=== PATIENT | female | born 1985 | race Caucasian/White ===

== ENCOUNTER → 2016-06-05 | Outpatient (CLI) | payer BC, OTHER ==
--- NOTE | 2016-06-06 07:14 | US ---
EXAMINATION TYPE: US OB anatomy transabd DATE OF EXAM: 06/05/2016 4:54 PM COMPARISON: in PACS HISTORY: large for dates, TECHNIQUE: Transabdominal (TA) EXAM MEASUREMENTS: GESTATIONAL AGE / DATING Physician Established: (20weeks/ 0 days) EDC: 10/23/2016 Dates by LMP: (20 weeks/ 0 days) EDC: 10/23/2016 Dates by First Scan: (19 weeks/ 0 days) EDC: 10/30/2016 Dates by Current Scan: (19 weeks/ 2 days) EDC: 10/28/2016 SURVEY IUP: Single PLACENTA: Anterior PREVIA: Low Lying EMILIANO: 17.1 cm Normal CERVICAL LENGTH (transabdominal: norm > 3.0cm): 5.7 cm BIOMETRY PRESENTATION: Vertex LIE: Oblique BPD: 4.4 cm 19 weeks / 2 days HC: 16.4 cm 19 weeks / 1 days AC: 14.1 cm 19 weeks / 3 days FL: 3.0 cm 19 weeks / 1 days ESTIMATED WEIGHT IN GRAMS: 283 grams ESTIMATED WEIGHT IN LBS/OZS: 0 lbs. 10 oz. WEIGHT PERCENTAGE BASED ON ESTABLISHED DATE: 13 % HC/AC: 1.8 FL/AC: 21 HEART RATE: 142 bpm RHYTHM: Normal ANATOMY SEEN (within normal limits): * Lateral Vent (< 1 cm) : 0.7 cm * Cisterna Magna (< 1.1 cm):0.2 cm * Nuchal Fold (< 0.6 cm): 0.1 cm * Cerebellum (varies with age): 1.96cm Choroid Plexus (bilateral) Midline Falx Cavus Septi Pellucidi Stomach Situs Diaphragm Kidneys (bilateral) Bladder Cord Insert Three Vessel Cord Longitudinal Spine Transverse Spine Arms (bilateral) Legs (bilateral) ANATOMY SEEN (does not appear within normal limits): ANATOMY NOT SEEN: Four Chamber Heart Outflow tracts: LVOT/RVOT Nose / Lips MATERNAL WALL MEASUREMENT: 6 cm from skin to anterior uterine wall (if exam limited due to body habi tus). IMPRESSION: large body habitus limited visualization, pt coming back 06/19 2016 for OB recheck, viab le IUP age appropiate
== END | disposition home or self-care (01) ==
LOC: EDBD → RADUSWWP 16:13
PROVIDERS: ATTEND Obstetrics & Gynecology
DX: O36.62X0 Maternal care for excessive fetal growth, second trimester, not applicable or unspecified (principal); Z3A.19 19 weeks gestation of pregnancy
CPT/HCPCS: 76811

== ENCOUNTER → 2016-07-07 | Outpatient (CLI) | payer BC, OTHER ==
[2016-07-07 16:42] LABS: CH 29.4; CHCM 33.7; HCT 36.2 % (34.0-46.0); HDW 2.82; HGB 12.3 gm/dL (11.4-16.0); MCH 29.8 pg (25.0-35.0); MCHC 33.9 g/dL (31.0-37.0); MCV 87.8 fL (80.0-100.0); Mean Platelet Volume 7.4; RBC 4.12 m/uL (3.80-5.40); RDW 13.2 % (11.5-15.5); WBC 11.5 k/uL (3.8-10.6)
[2016-07-07 16:43] LABS: ALT 21 U/L (9-52); AST 15 U/L (14-36); Blood Urea Nitrogen 9 mg/dL (7-17); Non-African American GFR(MDRD) >60 (>60 ml/min/1.73 sqM); Uric Acid 4.2 mg/dL (3.7-7.4)
[2016-07-07 20:36] LABS: Hemoglobin A1C 4.6 % (4.2-6.1)
== END | disposition home or self-care (01) ==
LOC: EDBD → LABWHC1 16:16
PROVIDERS: ATTEND Pediatrics Neonatal-Perinatal Medicine
DX: Z34.90 Encounter for supervision of normal pregnancy, unspecified, unspecified trimester (principal); Z3A.00 Weeks of gestation of pregnancy not specified
CPT/HCPCS: 36415; 82565; 83036; 84450; 84460; 84520; 84550; 85027

== ENCOUNTER → 2016-07-10 | Outpatient (CLI) | payer BC, OTHER | END | disposition home or self-care (01) | LOC: EDBD → LABWHC1 07:24 | PROVIDERS: ATTEND Pediatrics Neonatal-Perinatal Medicine | DX: Z34.02 Encounter for supervision of normal first pregnancy, second trimester (principal); Z3A.00 Weeks of gestation of pregnancy not specified | CPT/HCPCS: 36415; 81050; 82575; 82950; 84156 ==

== ENCOUNTER → 2016-07-17 | Outpatient (CLI) | payer BC, OTHER ==
[2016-07-17 11:43] LABS: Glucose 3 Hour, Gest 94 mg/dL
== END | disposition home or self-care (01) ==
LOC: EDBD → LABWHC1 07:26
PROVIDERS: ATTEND Obstetrics & Gynecology
DX: O99.810 Abnormal glucose complicating pregnancy (principal); Z3A.00 Weeks of gestation of pregnancy not specified
CPT/HCPCS: 36415; 82951; 82952

== ENCOUNTER 2016-10-12 13:14 | Outpatient (CLI) | payer BC, OTHER | END 2016-10-12 13:55 | disposition home or self-care (01) | LOC: FBPOP 13:14 → EDBD 13:14 → FBPOP 13:55 | PROVIDERS: ATTEND Obstetrics & Gynecology | DX: O26.93 Pregnancy related conditions, unspecified, third trimester (principal); Z3A.38 38 weeks gestation of pregnancy | CPT/HCPCS: 59025; 99213 ==

== ENCOUNTER 2016-10-18 14:54 | Outpatient (CLI) | payer BC, OTHER ==
[2016-10-18 15:48] VITALS: BP 136/86; PULSE 112; RESP 19; TEMP 96.4
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
== END 2016-10-18 17:58 | disposition home or self-care (01) ==
LOC: FBPOP 14:54
PROVIDERS: ATTEND Obstetrics & Gynecology
DX: O9A.213 Injury, poisoning and certain other consequences of external causes complicating pregnancy, third trimester (principal); T14.90 Injury, unspecified; Z3A.39 39 weeks gestation of pregnancy
CPT/HCPCS: 59025; 99213

== ENCOUNTER 2016-10-23 11:01 | Inpatient (IN) | payer BC, OTHER ==
[2016-10-27] MEDS ORDERED: OXYTOCIN 10 UNIT/ML 1 ML VIAL IM PRN (06:25)
[2016-10-27] MEDS ORDERED: TERBUTALINE 1 MG/ML VIAL SQ PRN (06:25)
[2016-10-27] MEDS ORDERED: CARBOPROST TROMETHAMINE 250 MCG/ML 1 ML AMP IM PRN (06:25)
[2016-10-27] MEDS ORDERED: METHYLERGONOVINE 0.2 MG/ML 1 ML AMP IM PRN (06:25)
[2016-10-27] MEDS ORDERED: LIDOCAINE 1% (PF) 10 MG/ML (30 ML SDV) SQ PRN (06:25)
[2016-10-27] MEDS ORDERED: OXYTOCIN 20 UNITS/1000 ML NS 1,000 ML IV SCH ×2 (06:30→19:15)
[2016-10-27] MEDS: LACTATED RINGERS 1,000 ML IV SCH ×3 (06:40→20:45)
[2016-10-27 06:59] LABS: Basophils % (A) 0 %; CH 28.5; CHCM 33.8; Eosinophils # (A) 0.3 k/uL (0-0.7); Eosinophils % (A) 3 %; HCT 36.9 % (34.0-46.0); HDW 2.68; HGB 12.2 gm/dL (11.4-16.0); Luc # (Auto) 0.17; Luc % (Auto) 2; Lymphocytes # (A) 1.8 k/uL (1.0-4.8); Lymphocytes % (A) 18 %; MCH 28.1 pg (25.0-35.0); MCHC 33.1 g/dL (31.0-37.0); MCV 84.7 fL (80.0-100.0); Mean Platelet Volume 7.5; Monocytes # (A) 0.4 k/uL (0-1.0); Monocytes % (A) 4 %; Neutrophils # (A) 7.6 k/uL (1.3-7.7); Neutrophils % (A) 74 %; RBC 4.35 m/uL (3.80-5.40); RDW 14.4 % (11.5-15.5); WBC 10.4 k/uL (3.8-10.6)
[2016-10-27 07:21] VITALS: BMI 36.8
--- NOTE | 2016-10-27 10:24 | P.HPOB ---
History of Present Illness H&P Date: 10/27/16 Chief Complaint: Induction of labor 31 year old presents at 40 weeks 4 days for induction of labor. Her cervix is 2/70/-2 and she is dominick irregularly. heart tones are 140-145 with moderate variability and reactive. Past Medical History Past Medical History: Asthma, Hypertension (white coat syndrome) Additional Past Medical History / Comment(s): OB history: This is her first and she has had care with me since the first trimester. A+, abs neg, Rub Imm, RPR NR, Hep B neg, HIV NR. GBS neg. History of Any Multi-Drug Resistant Organisms: None Reported Past Surgical History: No Surgical Hx Reported Past Anesthesia/Blood Transfusion Reactions: No Reported Reaction Past Psychological History: No Psychological Hx Reported Smoking Status: Never smoker Past Alcohol Use History: None Reported Past Drug Use History: None Reported - Past Family History Mother Family Medical History: Hypertension Additional Family Medical History / Comment(s): from pancreatic cancer Medications and Allergies Home Medications Medication Instructions Recorded Confirmed Type Albuterol Inhaler [Ventolin Hfa 1 inhaler IN DAILY 10/18/16 10/27/16 History Inhaler] Budesonide-Formot 160-4.5 Mcg 1 inhaler IN BID 10/18/16 10/27/16 History [Symbicort 160-4.5 Mcg Inhaler] Montelukast [Singulair] 1 tab PO DAILY 10/18/16 10/27/16 History Pnv,Calcium 72/Iron/Folic Acid 1 tab PO DAILY 10/18/16 10/27/16 History [ Plus Tablet] Allergies Allergy/AdvReac Type Severity Reaction Status Date / Time No Known Allergies Allergy Verified 10/18/16 15:05 Exam Osteopathic Statement: *. No significant issues noted on an osteopathic structural exam other than those noted in the History and Physical/Consult. - Vital Signs Vital signs: Vital Signs Temp Pulse Resp BP 10/27/16 07:13 95.7 F L 88 17 128/80 Intake and Output 10/26/16 10/27/16 10/27/16 22:59 06:59 14:59 Other: Weight 100.244 kg 100.244 kg Patient Weight 10/28/16 06:59 Weight 100.244 kg Heart: RRR Lungs: CTAB Abdomen: soft, nontender Extremeties: neg mariposa's Results Result Diagrams: 10/27/16 06:41 Assessment and Plan (1) Normal labor Status: Acute Plan: 1. induction of labor with amniotomy and pitocin
[2016-10-27] MEDS ORDERED: BUTORPHANOL 1 MG/ML 1 ML VIAL IV PRN (11:43)
[2016-10-27] MEDS ORDERED: SODIUM CHLORIDE 0.9% 100 ML BAG ONE ×2 (15:20→18:13)
[2016-10-27] MEDS ORDERED: BUPIVACAINE (PF) 0.25% 30 ML VIAL ONE ×2 (15:20→18:13)
[2016-10-27] MEDS ORDERED: fentaNYL (PF) 50 MCG/ML 5 ML AMP ONE ×2 (15:20→18:13)
[2016-10-27] MEDS ORDERED: BUPIVACAINE (PF) 0.25% 25 ML, fentaNYL (PF) 200 MCG in SODIUM CHLORIDE 0.9% 71 ML EPIDURAL ONE (17:19)
[2016-10-27] MEDS ORDERED: ceFAZolin 2 GM in SODIUM CHLORIDE 0.9% 100 ML IVPB ONE (17:28)
[2016-10-27] MEDS ORDERED: CITRIC ACID-SODIUM CITRATE 15 ML CUP PO ONE (17:28)
[2016-10-27] MEDS ORDERED: ONDANSETRON 4 MG/2 ML VIAL ONE (18:13)
[2016-10-27] MEDS ORDERED: OXYTOCIN 10 UNIT/ML 1 ML VIAL ONE (18:13)
[2016-10-27] MEDS ORDERED: ONDANSETRON 4 MG/2 ML VIAL IVP PRN (19:02)
[2016-10-27] MEDS ORDERED: LANOLIN CREAM 5 GM TUBE TOPICAL PRN (19:02)
[2016-10-27] MEDS ORDERED: ZOLPIDEM 5 MG TAB PO PRN (19:02)
[2016-10-27] MEDS ORDERED: diphenhydrAMINE 50 MG/ML 1 ML VIAL IVP PRN ×2 (19:02)
[2016-10-27] MEDS ORDERED: diphenhydrAMINE 50 MG CAP PO PRN (19:02)
[2016-10-27] MEDS ORDERED: HYDROmorphone PCA 5 MG/25 ML SYRINGE IV PRN (19:02)
[2016-10-27] MEDS ORDERED: METOCLOPRAMIDE 5 MG/ML 2 ML VIAL IVP PRN (19:02)
[2016-10-27] MEDS ORDERED: ACETAMINOPHEN TAB 325 MG TAB PO PRN (19:02)
[2016-10-27] MEDS ORDERED: NALOXONE 0.4 MG/ML 1 ML VIAL IV PRN (19:02)
[2016-10-27] MEDS ORDERED: SIMETHICONE 80 MG CHEWABLE PO PRN (19:02)
[2016-10-27] MEDS ORDERED: diphenhydrAMINE 25 MG CAP PO PRN (19:02)
--- NOTE | 2016-10-27 19:07 | P.OP ---
Date of Procedure: 10/27/16 Preoperative Diagnosis: 1. at 40 weeks and 4 days 2. Failure to progress Postoperative Diagnosis: 1. at 40 weeks and 4 days 2. Failure to progress Procedure(s) Performed: Primary low transverse Implants: Anesthesia: epidural Surgeon: Melba Charles Transportation Dispatcher #1: Judith Gómez Estimated Blood Loss (ml): 700 IV fluids (ml): 900 Urine output (ml): 400 Pathology: other (Placenta) Condition: stable Disposition: floor Indications for Procedure: 31-year-old presented at 40 weeks and 4 days for induction of labor. Her cervix was 2 cm dilated, 70% effaced, and -2 station. Amniotomy was performed and Pitocin was started. After several hours of adequate contractions her cervix did not change past 3 cm dilated. section was called and informed consent was obtained. Operative Findings: Viable male, Apgars 9, 9, weight 7 lbs. 13 oz. Description of Procedure: Patient was taken to the operating room where spinal anesthesia was found be adequate. She was prepped and draped in normal sterile fashion in dorsal supine position with a leftward tilt. Pfannenstiel skin incision was made the scalpel and carried through to the underlying layer of fascia with the scalpel. Fascia was incised in midline and carried bilaterally with the Unger scissors. The superior aspect of the fascial incision was grasped with Peewee clamps elevated and the underlying rectus muscles dissected off with the Unger's. Attention was then turned to inferior aspect of same incision which in a similar fashion was grasped tented up and the underlying rectus muscles dissected off with the Unger's. The rectus muscles were the midline and the peritoneum was identified tented up and entered sharply with the scalpel. The incision was extended superiorly and inferiorly with good visualization of the bladder. The bladder blade was inserted and the vesicouterine peritoneum was incised the Metzenbaums then carried bilaterally and bladder flap created digitally. A low transverse incision was then made on the uterus with the scalpel. This was carried bilaterally and digital manner. Infant's head delivered atraumatically, nose and mouth bulb suctioned, cord clamped and cut, infant handed off to waiting nurses. Apgars 9,9, weight 7 lbs. 13 oz. Placenta delivered manually, intact with three-vessel cord. The uterus is exteriorized and cleared of all clots and debris. The uterine incision was closed with 0 Vicryl in a running locked fashion. Second layer of the same sutures used in imbricating fashion to obtain excellent hemostasis. Bladder flap was then reapproximated using 2-0 Vicryl in a running fashion. Both ovaries and tubes appeared normal. The uterus was placed back into the abdomen. The peritoneum was reapproximated using 2-0 Vicryl in a running fashion. The muscles were reapproximated using 2-0 Vicryl in interrupted fashion. The fascia was reapproximated using 0 Vicryl in a running fashion. The subcutaneous tissues closed with 3-0 Vicryl running fashion. The skin was closed amelie. Patient tolerated the procedure well, sponge and instrument counts were correct times 2 and she was taken to the recovery room in stable condition.
[2016-10-27] MEDS: KETOROLAC 30 MG/ML 1 ML VIAL IVP PRN (20:03)
[2016-10-27] MEDS: SENNOSIDES-DOCUSATE SODIUM 1 EACH TAB PO SCH (20:45)
[2016-10-28] MEDS: LACTATED RINGERS 1,000 ML IV SCH ×2 (02:09→13:39)
[2016-10-28] MEDS: KETOROLAC 30 MG/ML 1 ML VIAL IVP PRN ×3 (02:16→15:50)
[2016-10-28 04:59] LABS: Basophils % (A) 0 %; CH 28.6; CHCM 33.1; Eosinophils # (A) 0.2 k/uL (0-0.7); Eosinophils % (A) 2 %; HCT 33.2 % (34.0-46.0); HGB 10.8 gm/dL (11.4-16.0); Luc # (Auto) 0.13; Luc % (Auto) 1; Lymphocytes # (A) 1.8 k/uL (1.0-4.8); Lymphocytes % (A) 15 %; MCH 28.3 pg (25.0-35.0); MCHC 32.7 g/dL (31.0-37.0); MCV 86.7 fL (80.0-100.0); Mean Platelet Volume 8.4; Monocytes # (A) 0.4 k/uL (0-1.0); Monocytes % (A) 3 %; Neutrophils # (A) 9.6 k/uL (1.3-7.7); Neutrophils % (A) 79 %; RBC 3.83 m/uL (3.80-5.40); RDW 14.7 % (11.5-15.5); WBC 12.1 k/uL (3.8-10.6); WBC (Perox) 12.13
[2016-10-28] MEDS: SENNOSIDES-DOCUSATE SODIUM 1 EACH TAB PO SCH ×2 (08:06→20:05)
[2016-10-28] MEDS ORDERED: Acetaminophen-Codeine 300-30mg TAB PO PRN (08:26)
--- NOTE | 2016-10-28 08:26 | P.PNOBGPC ---
Subjective - Subjective Principal diagnosis: Status post primary low transverse postop day #1 Interval history: Patient seen and examined. Denies nausea, vomiting, chest pain, shortness of breath or calf pain. Patient reports: Reports appetite normal, Reports voiding normally, Reports pain well controlled, Reports ambulating normally : doing well Objective - Vital Signs Latest vital signs: Vital Signs Temp Pulse Resp BP Pulse Ox 10/28/16 04:00 98 F 102 H 15 122/83 98 10/28/16 00:00 98 F 88 15 115/70 98 10/27/16 21:00 88 15 134/73 10/27/16 20:30 77 15 136/79 10/27/16 20:00 90 15 123/67 100 10/27/16 19:45 91 15 103/70 98 10/27/16 19:30 82 15 124/68 100 10/27/16 19:15 97.4 F L 90 15 124/76 97 10/27/16 18:57 96.6 F L 112 H 16 128/74 97 Intake and Output 10/27/16 10/28/16 10/28/16 22:59 06:59 14:59 Intake Total 37.55 Output Total 700 Balance 37.55 -700 Intake: Intake, IV Titration 37.55 Amount Oxytocin 20 Units/1000 ml 37.55 Ns 1,000 ml @ 1 MILLIUNIT/MIN 3 mls/hr IV .Q24H [facility] Rx#:[id number] Output: Urine 700 Uretheral (Lewis) 700 Other: Voiding Method Indwelling Catheter - Exam Lungs: bilateral: normal Chest: Normal S1, Normal S2 Extremities: Present: normal Abdomen: Present: normal appearance, soft. Absent: distention, tenderness Incision: Present: normal, dry, intact Uterus: Present: normal, firm - Labs Labs: Abnormal Lab Results - Last 24 Hours (Table) 10/28/16 Range/Units 04:46 WBC 12.1 H (3.8-10.6) k/uL Hgb 10.8 L (11.4-16.0) gm/dL Hct 33.2 L (34.0-46.0) % Neutrophils # 9.6 H (1.3-7.7) k/uL Assessment and Plan (1) Normal labor Current Visit: Yes Status: Resolved Code(s): O80 - ENCOUNTER FOR FULL-TERM UNCOMPLICATED DELIVERY; Z37.9 - OUTCOME OF DELIVERY, UNSPECIFIED SNOMED Code(s ): 64555683 (2) Status post primary low transverse section Narrative/Plan: 1. Increase ambulation 2. DC STRATEGIC PLANNING ANALYST 3. By mouth pain meds Current Visit: Yes Status: Acute Code(s): Z98.891 - HISTORY OF UTERINE SCAR FROM PREVIOUS SURGERY SNOMED Code(s): 287928400
[2016-10-28] MEDS: IBUPROFEN 600 MG TAB PO PRN (23:53)
[2016-10-29] MEDS: IBUPROFEN 600 MG TAB PO PRN (05:39)
--- NOTE | 2016-10-29 08:07 | P.DS ---
Providers Date of admission: 10/27/16 06:06 Expected date of discharge: 10/29/16 Attending physician: Melba Charles Primary care physician: Stated None - Discharge Diagnosis(es) (1) Normal labor Current Visit: Yes Status: Resolved (2) Status post primary low transverse section Current Visit: Yes Status: Acute Hospital Course: Patient presented for induction of labor and did undergo a primary low transverse for failure to progress. Her course was uncomplicated. Her pain is well-controlled and she is tolerating regular diet, ambulating well. Denies nausea, vomiting, fever, chills, chest pain, shortness of breath or calf pain. She'll be discharged home post operative day #2 to follow-up with me in one week. Plan - Discharge Summary New Discharge Prescriptions: New Acetaminophen-Codeine 300-30mg [Tylenol w/codeine #3] 2 each PO Q4HR PRN #30 tab PRN Reason: Pain Ibuprofen [Motrin] 600 mg PO Q6HR PRN #30 tab PRN Reason: Mild Pain Or Fever >= 100.5 No Action Budesonide-Formot 160-4.5 Mcg [Symbicort 160-4.5 Mcg Inhaler] 1 inhaler IN BID Pnv,Calcium 72/Iron/Folic Acid [ Plus Tablet] 1 tab PO DAILY Montelukast [Singulair] 1 tab PO DAILY Albuterol Inhaler [Ventolin Hfa Inhaler] 1 inhaler IN DAILY Discharge Medication List Albuterol Inhaler [Ventolin Hfa Inhaler] 1 inhaler IN DAILY 10/18/16 [History] Budesonide-Formot 160-4.5 Mcg [Symbicort 160-4.5 Mcg Inhaler] 1 inhaler IN BID 10/18/16 [History] Montelukast [Singulair] 1 tab PO DAILY 10/18/16 [History] Pnv,Calcium 72/Iron/Folic Acid [ Plus Tablet] 1 tab PO DAILY 10/18/16 [ History] Acetaminophen-Codeine 300-30mg [Tylenol w/codeine #3] 2 each PO Q4HR PRN #30 tab 10/29/16 [Rx] Ibuprofen [Motrin] 600 mg PO Q6HR PRN #30 tab 10/29/16 [Rx] Follow up Appointment(s)/Referral(s): Melba Charles DO [Doctor of Osteopathic Medicine] - 1 Week Discharge Disposition: HOME SELF-CARE
[2016-10-29] MEDS: SENNOSIDES-DOCUSATE SODIUM 1 EACH TAB PO SCH (08:28)
[2016-10-29 10:43] VITALS: BP 134/74; PULSE 80; RESP 18; TEMP 97.5
== END 2016-10-29 14:45 | disposition home or self-care (01) | DRG 766 ==
LOC: EDBD → 4FBP 10-27 06:06
PROVIDERS: ADMIT Obstetrics & Gynecology; ATTEND Obstetrics & Gynecology
PROC: 10D00Z1 Extraction of Products of Conception, Low, Open Approach (ICD-10-PCS; principal; 2016-10-27 18:22)
DX: O99.52 Diseases of the respiratory system complicating childbirth (principal); J45.909 Unspecified asthma, uncomplicated; Z37.0 Single live birth; O16.4 Unspecified maternal hypertension, complicating childbirth; O62.2 Other uterine inertia; Z3A.40 40 weeks gestation of pregnancy; Z79.51 Long term (current) use of inhaled steroids; Z82.49 Family history of ischemic heart disease and other diseases of the circulatory system
CPT/HCPCS: 85025; 86850; 86900; 86901; 88307

== ENCOUNTER 2021-03-29 11:59 | Emergency (ER) | payer BC, OTHER ==
[2021-03-29 12:14] VITALS: RESP 18; TEMP 98.8
[2021-03-29] MEDS ORDERED: SODIUM CHLORIDE 0.9% 1,000 ML IV STA (15:24)
[2021-03-29] MEDS ORDERED: ASPIRIN 81 MG PO STA (15:25)
--- NOTE | 2021-03-29 15:29 | ED ---
General Adult HPI - General Chief complaint: Dizziness Stated complaint: High BP/headache/aches Time Seen by Provider: 03/29/21 15:20 Source: patient, RN notes reviewed, old records reviewed Mode of arrival: ambulatory Limitations: no limitations - History of Present Illness Initial comments: Well-appearing 36-year-old female presents to the emergency room with complaints of upper mid back pain with 2 episodes of vomiting last night. She states that the vomit was watery in nature. She did not have any complaints of abdominal pain, chest pain or difficulty in breathing. Patient states she did call her primary care doctor and told him that her blood pressure was elevated 150/111 and he suggested that she come to the emergency room for evaluation due to the back pain and nausea and vomiting. She does have a history of asthma and hypertension but is not on medications. She states that she also had a headache with some dizziness yesterday. She denies any sick contacts. She denies any fevers. She states no vomiting today. -: days(s) (2) Location: back (Upper back) Radiation: non-radiation Severity scale (1-10): 6 Quality: aching Consistency: intermittent Improves with: none Worsens with: none Associated Symptoms: nausea/vomiting, other (Dizziness) Treatments Prior to Arrival: none - Related Data Home Medications Medication Instructions Recorded Confirmed Budesonide-Formot 160-4.5 Mcg 2 puff INHALATION RT-BID 10/18/16 03/29/21 [Symbicort 160-4.5 Mcg Inhaler] Montelukast [Singulair] 10 mg PO HS 10/18/16 03/29/21 Albuterol Inhaler [Ventolin Hfa 2 puff INHALATION RT-QID PRN 03/29/21 03/29/21 Inhaler] Allergies Allergy/AdvReac Type Severity Reaction Status Date / Time No Known Allergies Allergy Verified 03/29/21 15:46 Review of Systems ROS Statement: Those systems with pertinent positive or pertinent negative responses have been documented in the HPI. ROS Other: All systems not noted in ROS Statement are negative. Past Medical History Past Medical History: Asthma, Hypertension Additional Past Medical History / Comment(s): OB history: This is her first p regnancy and she has had care with me since the first trimester. A+, abs neg, Rub Imm, RPR NR, Hep B neg, HIV NR. GBS neg. History of Any Multi-Drug Resistant Organisms: None Reported Past Surgical History: No Surgical Hx Reported Past Anesthesia/Blood Transfusion Reactions: No Reported Reaction Past Psychological History: No Psychological Hx Reported Smoking Status: Never smoker Past Alcohol Use History: None Reported Past Drug Use History: None Reported - Past Family History Mother Family Medical History: Hypertension Additional Family Medical History / Comment(s): from pancreatic cancer General Exam Limitations: no limitations General appearance: alert, in no apparent distress Head exam: Present: atraumatic, normocephalic, normal inspection Eye exam: Present: normal appearance, EOMI ENT exam: Present: normal exam, normal oropharynx, mucous membranes moist Neck exam: Present: normal inspection, full ROM. Absent: tenderness, meningismus, lymphadenopathy Respiratory exam: Present: normal lung sounds bilaterally. Absent: respiratory distress, wheezes, rales, rhonchi, stridor, chest wall tenderness, accessory muscle use Cardiovascular Exam: Present: regular rate, normal rhythm, normal heart sounds. Absent: systolic murmur, diastolic murmur, rubs, gallop, clicks, JVD GI/Abdominal exam: Present: soft, normal bowel sounds. Absent: distended, tenderness, guarding, rebound, rigid Extremities exam: Present: normal inspection, full ROM, normal capillary refill. Absent: tenderness, pedal edema, joint swelling, calf tenderness Back exam: Present: normal inspection, full ROM, tenderness (Mid upper back). Absent: CVA tenderness (R), CVA tenderness (L), paraspinal tenderness, vertebral tenderness, rash noted Neurological exam: Present: alert, oriented X3 Psychiatric exam: Present: normal affect, normal mood Skin exam: Present: warm, dry, intact, normal color. Absent: rash, cyanosis, diaphoretic, petechiae, pallor Course Vital Signs 03/29/21 03/29/21 03/29/21 12:09 17:42 17:52 Temperature 98.8 F Pulse Rate 95 86 Respiratory 18 Rate Blood Pressure 153/105 138/108 O2 Sat by Pulse 97 99 Oximetry EKG Findings - EKG Results: EKG: sinus rhythm (Ventricular rate of 92, AL interval 0.140, QRS 0.92, QTC 0.462) Medical Decision Making - Medical Decision Making Patient was sent to the emergency room by her primary care doctor after calling him and telling her blood pressure was elevated at home. She had complained of some dizziness with 2 episodes of emesis yesterday. She states that she also had some mid upper back pain but denies cough or fevers. Patient does have a history of asthma. Chest x-ray shows no active cardiopulmonary disease. Patient's blood work is unremarkable. Troponin is negative at 0.012 and EKG shows normal sinus rhythm with PVCs. I have a low suspicion that this is cardiac in nature. Patient does not have a history of cardiac disease and there is no family history of cardiac disease before age 40. Patient will be discharged to follow up with her primary care doctor regarding elevated blood pressures. Case discussed with Dr. Wong - Lab Data Result diagrams: 03/29/21 16:00 03/29/21 16:00 Lab Results 03/29/21 03/29/21 03/29/21 Range/Units 16:00 16:00 16:00 WBC 7.4 (3.8-10.6) k/uL RBC 5.21 (3.80-5.40) m/uL Hgb 16.1 H (11.4-16.0) gm/dL Hct 47.4 H (34.0-46.0) % MCV 91.1 (80.0-100.0) fL MCH 31.0 (25.0-35.0) pg MCHC 34.1 (31.0-37.0) g/dL RDW 12.6 (11.5-15.5) % Plt Count 213 (150-450) k/uL MPV 7.2 Neutrophils % 77 % Lymphocytes % 13 % Monocytes % 5 % Eosinophils % 3 % Basophils % 0 % Neutrophils # 5.7 (1.3-7.7) k/uL Lymphocytes # 1.0 (1.0-4.8) k/uL Monocytes # 0.4 (0-1.0) k/uL Eosinophils # 0.2 (0-0.7) k/uL Basophils # 0.0 (0-0.2) k/uL PT 11.0 (9.0-12.0) sec INR 1.0 (<1.2) Sodium (137-145) mmol/L Potassium (3.5-5.1) mmol/L Chloride (98-107) mmol/L Carbon Dioxide (22-30) mmol/L Anion Gap mmol/L BUN (7-17) mg/dL Creatinine (0.52-1.04) mg/dL Est GFR (CKD-EPI)AfAm (>60 ml/min/1.73 sqM) Est GFR (CKD-EPI)NonAf (>60 ml/min/1.73 sqM) Glucose (74-99) mg/dL Calcium (8.4-10.2) mg/dL Total Bilirubin (0.2-1.3) mg/dL AST (14-36) U/L ALT (4-34) U/L Alkaline Phosphatase (38-126) U/L Troponin I (0.000-0.034) ng/mL Total Protein (6.3-8.2) g/dL Albumin (3.5-5.0) g/dL Urine Color Yellow Urine Appearance Cloudy H (Clear) Urine pH 6.0 (5.0-8.0) Ur Specific Harmony 1.033 (1.001-1.035) Urine Protein 1+ H (Negative) Urine Glucose (UA) Negative (Negative) Urine Ketones 1+ H (Negative) Urine Blood Trace H (Negative) Urine Nitrite Negative (Negative) Urine Bilirubin 1+ H (Negative) Urine Urobilinogen 3.0 (<2.0) mg/dL Ur Leukocyte Esterase Trace H (Negative) Urine RBC 6 H (0-5) /hpf Urine WBC 1 (0-5) /hpf Ur Squamous Epith Cells 58 H (0-4) /hpf Urine Bacteria Occasional H (None) /hpf Urine Mucus Many H (None) /hpf Urine HCG, Qual (Not Detectd) Coronavirus (PCR) (Not Detectd) 03/29/21 03/29/21 03/29/21 Range/Units 16:00 16:00 16:00 WBC (3.8-10.6) k/uL RBC (3.80-5.40) m/uL Hgb (11.4-16.0) gm/dL Hct (34.0-46.0) % MCV (80.0-100.0) fL MCH (25.0-35.0) pg MCHC (31.0-37.0) g/dL RDW (11.5-15.5) % Plt Count (150-450) k/uL MPV Neutrophils % % Lymphocytes % % Monocytes % % Eosinophils % % Basophils % % Neutrophils # (1.3-7.7) k/uL Lymphocytes # (1.0-4.8) k/uL Monocytes # (0-1.0) k/uL Eosinophils # (0-0.7) k/uL Basophils # (0-0.2) k/uL PT (9.0-12.0) sec INR (<1.2) Sodium 134 L (137-145) mmol/L Potassium 3.6 (3.5-5.1) mmol/L Chloride 97 L (98-107) mmol/L Carbon Dioxide 26 (22-30) mmol/L Anion Gap 11 mmol/L BUN 12 (7-17) mg/dL Creatinine 0.55 (0.52-1.04) mg/dL Est GFR (CKD-EPI)AfAm >90 (>60 ml/min/1.73 sqM) Est GFR (CKD-EPI)NonAf >90 (>60 ml/min/1.73 sqM) Glucose 111 H (74-99) mg/dL Calcium 9.5 (8.4-10.2) mg/dL Total Bilirubin 1.2 (0.2-1.3) mg/dL AST 36 (14-36) U/L ALT 27 (4-34) U/L Alkaline Phosphatase 67 (38-126) U/L Troponin I <0.012 (0.000-0.034) ng/mL Total Protein 7.8 (6.3-8.2) g/dL Albumin 4.6 (3.5-5.0) g/dL Urine Color Urine Appearance (Clear) Urine pH (5.0-8.0) Ur Specific Harmony (1.001-1.035) Urine Protein (Negative) Urine Glucose (UA) (Negative) Urine Ketones (Negative) Urine Blood (Negative) Urine Nitrite (Negative) Urine Bilirubin (Negative) Urine Urobilinogen (<2.0) mg/dL Ur Leukocyte Esterase (Negative) Urine RBC (0-5) /hpf Urine WBC (0-5) /hpf Ur Squamous Epith Cells (0-4) /hpf Urine Bacteria (None) /hpf Urine Mucus (None) /hpf Urine HCG, Qual Not Detected (Not Detectd) Coronavirus (PCR) (Not Detectd) 03/29/21 Range/Units Unknown WBC (3.8-10.6) k/uL RBC (3.80-5.40) m/uL Hgb (11.4-16.0) gm/dL Hct (34.0-46.0) % MCV (80.0-100.0) fL MCH (25.0-35.0) pg MCHC (31.0-37.0) g/dL RDW (11.5-15.5) % Plt Count (150-450) k/uL MPV Neutrophils % % Lymphocytes % % Monocytes % % Eosinophils % % Basophils % % Neutrophils # (1.3-7.7) k/uL Lymphocytes # (1.0-4.8) k/uL Monocytes # (0-1.0) k/uL Eosinophils # (0-0.7) k/uL Basophils # (0-0.2) k/uL PT (9.0-12.0) sec INR (<1.2) Sodium (137-145) mmol/L Potassium (3.5-5.1) mmol/L Chloride (98-107) mmol/L Carbon Dioxide (22-30) mmol/L Anion Gap mmol/L BUN (7-17) mg/dL Creatinine (0.52-1.04) mg/dL Est GFR (CKD-EPI)AfAm (>60 ml/min/1.73 sqM) Est GFR (CKD-EPI)NonAf (>60 ml/min/1.73 sqM) Glucose (74-99) mg/dL Calcium (8.4-10.2) mg/dL Total Bilirubin (0.2-1.3) mg/dL AST (14-36) U/L ALT (4-34) U/L Alkaline Phosphatase (38-126) U/L Troponin I (0.000-0.034) ng/mL Total Protein (6.3-8.2) g/dL Albumin (3.5-5.0) g/dL Urine Color Urine Appearance (Clear) Urine pH (5.0-8.0) Ur Specific Harmony (1.001-1.035) Urine Protein (Negative) Urine Glucose (UA) (Negative) Urine Ketones (Negative) Urine Blood (Negative) Urine Nitrite (Negative) Urine Bilirubin (Negative) Urine Urobilinogen (<2.0) mg/dL Ur Leukocyte Esterase (Negative) Urine RBC (0-5) /hpf Urine WBC (0-5) /hpf Ur Squamous Epith Cells (0-4) /hpf Urine Bacteria (None) /hpf Urine Mucus (None) /hpf Urine HCG, Qual (Not Detectd) Coronavirus (PCR) Not Detected (Not Detectd) Disposition Clinical Impression: Hypertension Disposition: HOME SELF-CARE Condition: Good Instructions (If sedation given, give patient instructions): Hypertension (ED) Additional Instructions: Follow-up with your primary care doctor next week regarding elevated blood pressures. Return to the emergency room with any new or concerning symptoms. Is patient prescribed a controlled substance at d/c from ED?: No Referrals: Ike Patel DO [Primary Care Provider] - 1-2 days Time of Disposition: 17:46
[2021-03-29 16:06] LABS: Basophils % (A) 0 %; Eosinophils # (A) 0.2 k/uL (0-0.7); Eosinophils % (A) 3 %; HCT 47.4 % (34.0-46.0); HGB 16.1 gm/dL (11.4-16.0); Lymphocytes % (A) 13 %; MCHC 34.1 g/dL (31.0-37.0); MCV 91.1 fL (80.0-100.0); Mean Platelet Volume 7.2; Monocytes # (A) 0.4 k/uL (0-1.0); Monocytes % (A) 5 %; Neutrophils # (A) 5.7 k/uL (1.3-7.7); Neutrophils % (A) 77 %; Platelet Count 213 k/uL (150-450); RBC 5.21 m/uL (3.80-5.40); RDW 12.6 % (11.5-15.5); WBC 7.4 k/uL (3.8-10.6)
[2021-03-29 16:08] LABS: Appearance,Urine Cloudy (Clear); Bacteria,Urine Occasional /hpf; Bilirubin,Urine 1+ (Negative); Blood,Urine Trace (Negative); Color,Urine Yellow; Glucose,Urine (UA) Negative (Negative); Ketones,Urine 1+ (Negative); Leukocyte Esterase,Urine Trace (Negative); Mucus,Urine Many /hpf; Nitrite,Urine Negative (Negative); Protein,Urine 1+ (Negative); RBC,Urine 6 /hpf (0-5); Specific Gravity,Urine 1.033 (1.001-1.035); Squamous Epithelial Cell,Urine 58 /hpf (0-4); WBC,Urine 1 /hpf (0-5)
[2021-03-29 16:15] LABS: ALT 27 U/L (4-34); AST 36 U/L (14-36); African American GFR (CKD) >90 (>60 ml/min/1.73 sqM); Albumin 4.6 g/dL (3.5-5.0); Alkaline Phosphatase 67 U/L (38-126); Anion Gap 11 mmol/L; Blood Urea Nitrogen 12 mg/dL (7-17); Calcium 9.5 mg/dL (8.4-10.2); Carbon Dioxide 26 mmol/L (22-30); Chloride 97 mmol/L (98-107); Glucose 111 mg/dL (74-99); Non-African American GFR(CKD) >90 (>60 ml/min/1.73 sqM); Potassium 3.6 mmol/L (3.5-5.1); Sodium 134 mmol/L (137-145); Total Bilirubin 1.2 mg/dL (0.2-1.3); Total Protein 7.8 g/dL (6.3-8.2)
--- NOTE | 2021-03-29 17:07 | XR ---
EXAMINATION TYPE: XR chest 2V DATE OF EXAM: 03/29/2021 COMPARISON: 04/19/2011 HISTORY: Chest pain TECHNIQUE: 2 views FINDINGS: There is no heart failure nor confluent pneumonic infiltrate. Costophrenic angles are clear . There are chest leads. Bony thorax is intact. IMPRESSION: No active cardiopulmonary disease. No change.
[2021-03-29 17:42] VITALS: BP 138/108; PULSE 86
== END 2021-03-29 18:01 | disposition home or self-care (01) ==
LOC: EC 11:59
DX: I10 Essential (primary) hypertension (principal); M54.6 Pain in thoracic spine; R11.2 Nausea with vomiting, unspecified; R42 Dizziness and giddiness; Z20.822 Contact with and (suspected) exposure to COVID-19
CPT/HCPCS: 36415; 71046; 80053; 81001; 81025; 84484; 85025; 85610; 87635; 93005; 99284